=== PATIENT | female | born 1990 | race Caucasian/White ===

== ENCOUNTER → 2017-04-22 | Outpatient (CLI) | payer OTHER | LOC: RAD 08:22 | DX: M25.472 Effusion, left ankle (principal); M25.572 Pain in left ankle and joints of left foot; W19.XXXA Unspecified fall, initial encounter ==

== ENCOUNTER → 2018-08-05 | Outpatient (CLI) | payer OTHER | LOC: LAB 09:19 | DX: Z01.89 Encounter for other specified special examinations (principal) ==

== ENCOUNTER → 2020-10-14 | Outpatient (CLI) | payer BC | LOC: RAD 13:25 | DX: M25.572 Pain in left ankle and joints of left foot (principal) ==

== ENCOUNTER → 2020-12-28 | Outpatient (REF) | LOC: LAB 14:45 | DX: N91.2 Amenorrhea, unspecified (principal) ==